=== PATIENT | male | born 1990 | race Caucasian/White ===

== ENCOUNTER 2017-01-17 21:50 | Emergency (ER) | payer OTHER ==
--- NOTE | ~2017-01-17 | CT4 ---
[facility] A Service of [facility] RADIOLOGY TEXT RESULTS PATIENT: MIGUEL CAMARA LOCATION: ATIF : 88 UNIT #: [id number] AGE: [address]: Yohannes Herron MD SEX: M ORDER DR: [id number] [facility] [address] [place], [place] [address] [id number] MR#: [id number] Acc #: [id number] NAME: MIGUEL CAMARA : 1990 SEX: M STUDY DATE/TIME: 01/18/2017 1:15 UNIT: ATIF ROOM: STUDY DESCRIPTION: CT Abd and Pelv Wo Cont Attending Physician: Yohannes Herron M.D. Ordering Physician: Yohannes Herron M.D. Primary Care Physician: Primary Care Physician No MEDICAL IMAGING REPORT This report is preliminary unless electronic signature is present EXAM CT abdomen and pelvis without contrast INDICATION Right flank pain and nausea x3 weeks which is worse in the last few days. History of kidney stones. No comparison. TECHNIQUE Axial 3 mm images were obtained through the abdomen and pelvis without IV or oral contrast. Sagittal and coronal reconstructions were generated. This CT exam was performed with one or more of the following radiation dose reduction techniques: automatic exposure control, adjustment of mA and/or kV according to patient size, and iterative reconstruction. FINDINGS Lung bases are clear. The liver, gallbladder, spleen, pancreas, and adrenal glands are normal. There are two lower pole right renal stones measuring 7 mm and 3 mm in diameter. There is no hydronephrosis and there are no ureteral stones. The aorta is normal in size. The left kidney is normal. The bowel is normal. The bladder and prostate gland are normal. The bones are unremarkable. IMPRESSION 1. Two nonobstructing lower pole right renal stones measuring up to 6 mm in diameter. 2. No hydronephrosis. 3. Otherwise normal. [facility] A Service of [facility] RADIOLOGY TEXT RESULTS PATIENT: MIGUEL CAMARA LOCATION: ATIF : 88 UNIT #: [id number] AGE: [address]: Yohannes Herron MD SEX: M ORDER DR: Dictated by... Ge Yeboah M.D. THIS IS AN ELECTRONICALLY VERIFIED REPORT Ge Yeboah M.D. at 01/19/2017 5:00 AM LISANDRO/kimberley TD: 01/19/2017 02:59 JOB #: [id number] MEDICAL IMAGING REPORT Page 1 of 1 COPY
[~2017-01-17 21:50] MED LIST: MAGIC MOUTHWASH; PERCOCET 51 UDTAB 5/; TYLENOL325 M1
[2017-01-17 22:35] LABS: URINE SOURCE CLEAN CATCH
[2017-01-17 22:42] LABS: URINE APPEARANCE CLOUDY; URINE BILIRUBIN NEG (NEG); URINE BLOOD 3+ (NEG); URINE COLOR ORANGE; URINE GLUCOSE NEG (NEG); URINE KETONE NEG (NEG); URINE LEUKOCYTE ESTERASE 1+ (NEG); URINE NITRATE NEG (NEG); URINE PROTEIN TRACE (NEG); URINE SPECIFIC GRAVITY 1.016 (1.003-1.035); URINE UROBILINOGEN 0.2 MG/DL (NEG)
[2017-01-17 22:45] LABS: CULTURE INDICATED? YES; URBCS1 AUWI INNUM /[HPF] (0-2); URINE BACTERIA AUWI NEG (NEGATIVE); URINE SQUAMOUS EPITHELIAL CELL OCC /[HPF]
[2017-01-18 01:27] LABS: BASOPHIL% 0.4 % (0-2.5); EOSINOPHIL# 0.1 X10e3 (0-0.7); EOSINOPHIL% 0.9 % (0.0-7.0); HEMATOCRIT 42.1 % (38.0-50.0); HEMOGLOBIN 14.4 gm/dL (13.0-16.0); LYMPHOCYTE# 2.5 X10e3 (1.0-3.5); LYMPHOCYTE% 26.1 % (17.0-45.0); MEAN CELL VOLUME 79.5 FL (83-96); MEAN CORPUSCULAR HEMOGLOBIN 27.3 PG (28-34); MEAN CORPUSCULAR HGB CONC 34.3 g/dL (30-36); MEAN PLATELET VOLUME 9.1 FL (6.5-11.5); MONOCYTE# 0.5 X10e3 (0-1.0); MONOCYTE% 4.9 % (3.0-12.0); NEUTROPHIL# 6.4 X10e3 (1.5-7.1); NEUTROPHIL% 67.7 % (40-75); PLATELET COUNT 170 X10e3 (140-420); RED CELL DISTRIBUTION WIDTH 14.8 % (11.0-15.5); WHITE BLOOD COUNT 9.4 X10e3 (4.0-10.5)
[2017-01-18 01:36] LABS: DIFF IND NO
[2017-01-18 01:52] LABS: ALBUMIN SERUM 4.7 g/dL (3.5-5.0); BILIRUBIN, DIRECT 0.1 mg/dL (0.0-0.2); BILIRUBIN,INDIRECT 0.6 mg/dL (0.0-0.9); BILIRUBIN,TOTAL 0.7 mg/dL (0.2-2.0); BUN/CREATININE RATIO 12.22; CALCIUM SERUM 9.4 mg/dL (8.4-10.2); CREATININE SERUM 0.9 mg/dL (0.6-1.4); GLOM FILT RATE Estimated 115.8 mL/min (>60); POTASSIUM 3.6 mmol/L (3.5-5.1); PROTEIN TOTAL SERUM 7.6 g/dL (6.0-8.3)
== END 2017-01-18 02:38 | disposition home or self-care (01) ==
LOC: CED 21:50
PROVIDERS: Emergency Medicine
DX: R10.9 Unspecified abdominal pain (principal)
CPT/HCPCS: 36415; 74176; 80048; 80076; 81003; 83690; 85025; 87086; 96361; 96374; 96375; 99284; J1170; J1885; J2405